=== PATIENT | male | born 1955 | race Caucasian/White ===

== ENCOUNTER → 2023-08-16 15:42 | Outpatient (REF) | payer MEDICARE, OTHER, SELFPAY | LOC: DHCBC HW 15:42 | PROVIDERS: ATTENDING PHYSICIAN Internal Medicine Cardiovascular Disease; FAMILY PHYSICIAN Family Medicine | DX: Z95.1 Presence of aortocoronary bypass graft (principal) | CPT/HCPCS: 93306 ==

== ENCOUNTER → 2023-08-17 09:44 | Outpatient (REF) | payer MEDICARE, OTHER, SELFPAY | LOC: RCS 09:44 | PROVIDERS: ATTENDING PHYSICIAN Internal Medicine Cardiovascular Disease; FAMILY PHYSICIAN Family Medicine | DX: Z95.1 Presence of aortocoronary bypass graft (principal) | CPT/HCPCS: 93017 ==

== ENCOUNTER → 2024-07-16 07:15 | Outpatient (REF) | payer MEDICARE, OTHER, SELFPAY | LOC: RCS 07:15 | PROVIDERS: ATTENDING PHYSICIAN Internal Medicine Cardiovascular Disease; FAMILY PHYSICIAN Family Medicine | DX: M79.604 Pain in right leg (principal); Z95.1 Presence of aortocoronary bypass graft; I25.10 Atherosclerotic heart disease of native coronary artery without angina pectoris | CPT/HCPCS: 93017; 93306; 93925 ==

== ENCOUNTER → 2025-02-27 10:11 | Outpatient (REF) | payer MEDICARE, OTHER, SELFPAY | LOC: RAD 10:11 | PROVIDERS: ATTENDING PHYSICIAN Internal Medicine; FAMILY PHYSICIAN Family Medicine | DX: N17.9 Acute kidney failure, unspecified (principal) | CPT/HCPCS: 76770 ==